=== PATIENT | female | born 1990 | race African-American/Black ===

== ENCOUNTER 2019-03-22 20:46 | Inpatient (IN) ==
[2019-03-22] MEDS ORDERED: ONDANSETRON 4 MG/2 ML VIAL IV PRN (21:25)
[2019-03-22] MEDS ORDERED: BUTORPHANOL 2 MG/ML VIAL IV PRN (21:25)
[2019-03-22] MEDS ORDERED: LACTATED RINGERS 1,000 ML IV SCH (21:30)
[2019-03-22 21:47] LABS: Basophils # 0.1 10*3/uL (0.0-0.2); Basophils % 0.4 % (0.0-0.8); Eosinophils # 0.1 10*3/uL (0.0-0.87); Eosinophils % 1.1 % (0.00-10.9); Hemoglobin 11.6 GM/DL (12.0-16.0); Immature Granulocytes % 1.6 %; Lymphocytes # 2.3 10*3/uL (1.4-4.0); Lymphocytes % 18.6 % (21.3-54.2); Mean Corpuscular HGB Conc 33.1 GM/DL (32-36); Mean Corpuscular Volume 89.7 FL (87-102); Mean Platelet Volume 9.3 FL (9.6-12.0); Monocytes % 10.9 % (1.7-12.7); Neutrophils % 67.4 % (38.7-73.9); Platelet Count 236 T/CUMM (130-400); Red Cell Distribution Width 14.1 % (9.3-17.3); White Blood Count 12.4 T/CUMM (4-12)
[2019-03-22 22:12] LABS: Alanine Aminotransferase 15 U/L (13-56); Albumin 2.7 G/DL (3.4-5.0); Alkaline Phosphatase 97 U/L (45-117); Aspartate Amino Transferase 12 U/L (0-37); Bilirubin,Total < 0.39 MG/DL (0.2-1.0); Blood Urea Nitrogen 6 MG/DL (7-18); Calcium 8.4 MG/DL (8.5-10.1); Glucose 76 MG/DL (74-106); Osmolality,Calculated 273.5 MOS/KG (273-304); Total Protein 6.8 G/DL (6.4-8.3)
[2019-03-23] MEDS ORDERED: AMPICILLIN INJ 2,000 MG in SODIUM CHLORIDE 0.9% 100 ML IV ONE (00:28)
[2019-03-23] MEDS: AMPICILLIN INJ 1,000 MG in SODIUM CHLORIDE 0.9% 100 ML IV SCH ×2 (04:35→08:14)
[2019-03-23] MEDS ORDERED: OXYTOCIN/LR 20 UNIT/1,000 ML BAG IV SCH (05:00)
[2019-03-23] MEDS ORDERED: NALOXONE 0.4 MG/ML VIAL IV PRN (05:05)
[2019-03-23] MEDS ORDERED: CITRIC ACID/SODIUM CITRATE 30 ML UDCUP PO ONE (05:05)
[2019-03-23] MEDS ORDERED: LACTATED RINGERS 1,000 ML IV ONE (05:05)
[2019-03-23] MEDS ORDERED: PROMETHAZINE 25 MG/1 ML VIAL IM ONE (05:05)
[2019-03-23] MEDS ORDERED: ePHEDrine 50 MG/ML AMP IV PRN (05:05)
[2019-03-23] MEDS ORDERED: diphenhydrAMINE 50 MG/1 ML VIAL IV PRN ×2 (05:05)
[2019-03-23] MEDS ORDERED: hydrOXYzine HCL 25 MG/1 ML VIAL IM PRN (05:05)
[2019-03-23] MEDS ORDERED: FAMOTIDINE 20 MG/2 ML VIAL IV ONE (05:05)
[2019-03-23] MEDS ORDERED: fentaNYL 2 MCG/ROPIV 0.2% EPID 100 ML EPIDURAL SCH (05:30)
[2019-03-23 08:28] LABS: Apearance,Urine CLEAR (Clear); Bilirubin,Urine Negative (Negative); Blood, Urine Negative (Negative); Glucose,Urine (UA) Negative (Negative); Ketones,Urine Negative (Negative); Mucus,Urine Occasional /LPF (Occasional); Nitrite,Urine Negative (Negative); Protein,Urine Negative; RBC,Urine 2 /HPF (0-4); Squamous Epithelial Cell,Urine Occasional /HPF (0-10); Urine Color Yellow (Yellow); Urine Specific Gravity 1.017 (1.001-1.035); Urine Urobilinogen < 2.0 EU/DL (0.2-1.0); WBC,Urine <1 /HPF (0-6)
[2019-03-23] MEDS ORDERED: miSOPROStol 200 MCG TABLET ONE (10:36)
[2019-03-23] MEDS ORDERED: OXYTOCIN/LR 20 UNIT/1,000 ML BAG IV ONE (10:48)
[2019-03-23] MEDS ORDERED: WITCH HAZEL PADS 100/JAR TOP PRN (10:48)
[2019-03-23] MEDS ORDERED: BISACODYL 10 MG SUPP RECTAL PRN (10:48)
[2019-03-23] MEDS ORDERED: ACETAMINOPHEN 325 MG TABLET PO PRN (10:48)
[2019-03-23] MEDS ORDERED: DIPH/TET/ACEL PERT BOOSTER VACCINE 0.5 ML VIAL IM ONE (10:48)
[2019-03-23] MEDS ORDERED: oxyCODONE/ACETAMINOPHEN 5-325 MG TABLET PO PRN (10:48)
[2019-03-23] MEDS ORDERED: RHO(D) IMMUNE GLOBULIN 300 MCG SYRINGE IM ONE (10:48)
[2019-03-23] MEDS ORDERED: HYDROCORTISONE 2.5% RECTAL CREAM 30 GM TUBE TOP PRN (10:48)
[2019-03-23] MEDS ORDERED: MEASLES/MUMPS/RUBELLA VACCINE 0.5 ML VIAL SUBCUT ONE (10:48)
[2019-03-23] MEDS ORDERED: ONDANSETRON 4 MG/2 ML VIAL IV PRN (10:48)
[2019-03-23] MEDS ORDERED: BENZOCAINE 20%/MENTHOL 0.5% SPRAY 56 GM CAN TOP PRN (10:48)
[2019-03-23] MEDS ORDERED: LANOLIN 50% CREAM 0.3 OZ TUBE TOP PRN (10:48)
[2019-03-23] MEDS: IBUPROFEN 800 MG TABLET PO PRN (16:38)
[2019-03-23] MEDS: oxyCODONE/ACETAMINOPHEN 5-325 MG TABLET PO PRN (16:40)
[2019-03-23] MEDS: DOCUSATE SODIUM 100 MG CAPSULE PO SCH (21:24)
[2019-03-24] MEDS: IBUPROFEN 800 MG TABLET PO PRN ×3 (03:30→23:04)
[2019-03-24] MEDS: oxyCODONE/ACETAMINOPHEN 5-325 MG TABLET PO PRN ×2 (03:30→23:05)
[2019-03-24 04:50] LABS: Basophils # 0.1 10*3/uL (0.0-0.2); Basophils % 0.4 % (0.0-0.8); Eosinophils # 0.2 10*3/uL (0.0-0.87); Eosinophils % 1.1 % (0.00-10.9); Hematocrit 32.9 VOL% (35.7-47.0); Hemoglobin 11.1 GM/DL (12.0-16.0); Immature Granulocytes % 1.1 %; Immature Granulocytes Absolute 0.15 #; Lymphocytes # 2.4 10*3/uL (1.4-4.0); Lymphocytes % 17.6 % (21.3-54.2); Mean Corpuscular HGB Conc 33.7 GM/DL (32-36); Mean Corpuscular Volume 89.6 FL (87-102); Mean Platelet Volume 10.1 FL (9.6-12.0); Monocytes % 10.7 % (1.7-12.7); Neutrophils % 69.1 % (38.7-73.9); Platelet Count 220 T/CUMM (130-400); Red Blood Count 3.67 MC/CUMM (3.8-5.5); Red Cell Distribution Width 13.9 % (9.3-17.3); White Blood Count 13.9 T/CUMM (4-12)
[2019-03-24] MEDS: DOCUSATE SODIUM 100 MG CAPSULE PO SCH ×2 (09:11→20:25)
[2019-03-24] MEDS ORDERED: RHO(D) IMMUNE GLOBULIN 300 MCG SYRINGE IM ONE ×2 (15:27→18:00)
[2019-03-25 07:30] VITALS: BP 109/70
[2019-03-25] MEDS: DOCUSATE SODIUM 100 MG CAPSULE PO SCH (08:01)
[2019-03-25] MEDS: IBUPROFEN 800 MG TABLET PO PRN (11:34)
== END 2019-03-25 12:30 | disposition home or self-care (01) | DRG 560 ==
LOC: N.LDOUT 20:46 → N.LD 20:48 → N.OB 03-23 15:00
PROVIDERS: ADMIT Specialist; ATTEND Specialist